=== PATIENT | male | born 1965 | race Two or more races ===

== ENCOUNTER → 2024-09-02 | Outpatient (CLI) | payer BC, SELFPAY ==
[2024-09-02 09:51] LABS: Alanine Aminotransferase 37 U/L (10-49); Albumin, Serum 4.6 gm/dL (3.5-5.0); Albumin/Globulin Ratio 2.2 (1.2-2.2); Alkaline Phosphatase 60 U/L (46-116); Anion Gap 6 (7-16); Aspartate Amino Transferase 31 U/L (0-34); BUN/Creatinine Ratio 15 Ratio (12-20); Bilirubin,Total 0.8 mg/dL (0.3-1.2); Blood Urea Nitrogen 16 mg/dL (9-23); Calcium 9.8 mg/dL (8.3-10.6); Calcium (Corrected) 9.8 mg/dL (8.5-10.1); Cardiac Risk Estimate 4.5 RATIO (4.0-6.7); Chloride 106 mMol/L (98-107); Cholesterol 205 mg/dL (132-200); Creatinine (Component) 1.1 mg/dL (0.6-1.3); Globulin 2.1 gm/dL (2.3-3.5); Glucose 109 mg/dL (74-106); HDL Cholesterol 46 mg/dL (40-60); LDL Cholesterol,Calculated 124 mg/dL (0-130); Osmolality,Calculated 281 (275-295); Potassium 4.6 mMol/L (3.4-5.1); Sodium 140 mMol/L (136-145); Total Protein 6.7 gm/dL (5.7-8.2); Triglycerides 177 mg/dL (30-150); eGFR > 60 See Note
== END | disposition home or self-care (01) ==
LOC: COPL 06:45
PROVIDERS: PCP Nurse Practitioner Family; Referring Provider Nurse Practitioner Family; Visit Provider Nurse Practitioner Family
DX: E78.5 Hyperlipidemia, unspecified (principal)
CPT/HCPCS: 36415; 80053; 80061

== ENCOUNTER 2025-05-26 16:00 | Emergency (ER) | payer BC, SELFPAY ==
[2025-05-26 16:02] VITALS: BMI 27.8
[2025-05-26 16:25] VITALS: BP 164/96; PULSE 90; RESP 18; TEMP 37.1; O2SAT 96
--- NOTE | 2025-05-26 16:39 | PD.EDRME ---
Rapid Medical Screening Exam RME Arrival date/time: 05/26/25 16:00 59-year-old male presents to the Emergency Department today for complaints of right lower extremity pain patient had outpatient ultrasound which shows patient has DVT Chief Complaint: Extremity Injury, Lower Vital signs: Vital Signs Temperature 98.8 F 05/26/25 16:25 Pulse Rate 90 05/26/25 16:25 Respiratory Rate 18 05/26/25 16:25 Blood Pressure 164/96 H 05/26/25 16:25 Pulse Oximetry (%) 96 05/26/25 16:25 Oxygen Delivery Method Room Air 05/26/25 16:25
--- NOTE | 2025-05-26 16:47 | EDNOTE_ITS ---
ED Extremity Problem RME/HPI General Chief complaint: Extremity Injury, Lower Stated complaint: SENT BY PCP FOR POSSIBLE DVT Time Seen by Provider: 05/26/25 16:41 Arrival date/time: 05/26/25 16:00 Limitations: no limitations RME / HPI RME / HPI Narrative: 05/26/25 16:00 59-year-old male presents to the Emergency Department today for complaints of right lower extremity pain patient had outpatient ultrasound which shows patient has DVT DR. SLAUGHTER MAIN ED EVALUATION: 59 year old male presents to the ED for evaluation of right lower extremity pain and swelling beginning 2 days ago and worsening in the last 24 hours. Pain described as aching in sensation located from the right knee down to his ankle. Reportedly consulted with PCP who ordered outpatient ultrasound studies and received call today of positive result. Patient mentioned he has been out of work for 4 months and spends majority of the day sitting. Denies chest pain, shortness of breath, headache, abdominal pain, n/v/d, or urinary symptoms. Related Data Previous Rx's ?Medication ?Instructions ?Recorded apixaban 5 mg (74 tabs) tablets in 5 mg PO BID right l eg DVT #74 tabs 05/26/25 a dose pack hydrocodone 5 mg-acetaminophen 325 1 tab PO Q6H PRN pa in #20 tabs 05/26/25 mg tablet Allergies Allergy/AdvReac Type Severity Reaction Status Date / Time No Known Allergies Allergy Verified 05/26/25 18:03 Review of Systems Review of Systems Systems Reviewed: All systems reviewed, normal except as documented Past Medical History Social History SMOKING STATUS: Never smoker ED Exam General Limitations: Present no limitations General appearance: Present alert and in no apparent distress Head Head exam: Present atraumatic Eye Eye exam: Present normal appearance, PERRL and EOMI ENT ENT exam: Present normal exam, normal oropharynx and mucous membranes moist Neck Neck exam: Present normal inspection, full ROM and trachea midline Chest Chest inspection: Present normal inspection and symmetric chest wall rise Respiratory Respiratory exam: Present normal lung sounds bilaterally Cardiovascular Cardiovascular exam: Present regular rate, normal rhythm and normal heart sounds Abdominal Exam Abdominal exam: Present soft and normal bowel sounds Extremities Exam Extremities exam: Present full ROM and other (Swelling to the rigth calf and behind the knee with 1+ tenderness, no increased warmth ) Back Exam Back exam: Present normal inspection and full ROM Neurological Exam Neurological exam: Present alert, oriented X3 and CN II-XII intact Psychiatric Psychiatric exam: Present normal affect and normal mood Skin Skin exam: Present warm, dry, intact and normal color Course Quality Measures VTE therapy Orders Category Date Time Status CBC Stat Lab 05/26/25 16:41 Completed Comprehensive Metabolic Panel Stat Lab 05/26/25 16:41 Completed Partial Thromboplastin Time Stat Lab 05/26/25 16:41 Completed Prothrombin Time with INR Stat Lab 05/26/25 16:41 Completed Enoxaparin [Lovenox] Med 05/26/25 16:52 Discontinued 90 mg SC X1 ONE HYDROcodone*/APAP 5/325 [[place] 5/325] Med 05/26/25 16:55 Discontinued 1 tab PO X1 ONE Vital Signs Vital signs: Vital Signs Temperature 98.8 F 05/26/25 16:25 Pulse Rate 90 05/26/25 16:25 Respiratory Rate 18 05/26/25 16:25 Blood Pressure 164/96 H 05/26/25 16:25 Pulse Oximetry (%) 96 05/26/25 16:25 Oxygen Delivery Method Room Air 05/26/25 16:25 Pulse ox is 96% on room air which is adequate. Extremity Problem MDM Narrative MDM Narrative:: Anjelica Avalos am scribing for and in the presence of Dr. Slaughter. Patient data External records reviewed:: None (No previous ED visits for review ) Clinical information provided by:: patient Social determinants that could affect healthcare access:: none Patient has the following chronic illnesses:: None reported How is presenting disease/condition affected by chronic disease/condition?: no chronic disease Evaluation data The following diagnostics were reviewed and interpreted by me:: lab results Lab and/or radiology exams considered but not ordered:: None Interpretation Summary: CBC, CMP and PT/PTT all within normal limits Medications / Prescriptions Medications or Prescriptions considered but not ordered:: None Medication administrations:: Medication Administration History Discontinued Medications Hydrocodone Bitart/Acetaminophen (Hydrocodone/Apap 5/325 Tablet) 1 tab PO X1 ON E Stop: 05/26/25 16:56 Last Admin: 05/26/25 18:16 Dose: 1 tab Documented By: OA Enoxaparin Sodium (Enoxaparin Sod Inj 100 Mg/Ml Syringe) 90 mg SC X1 ONE Stop: 05/26/25 16:53 Last Admin: 05/26/25 18:18 Dose: 90 mg Documented By: OA See above Consultations Consultation(s) initiated? (list below): No Diagnosis Most likely diagnosis given after review of the tests above:: DVT Admission Indicated Admission indicated?: not indicated Admission Request Was there a request for admission?: No Disposition Plan Disposition Plan: Discharge Discharge Attestation Discharge Attestation: The patient and all family members were given an opportunity to ask questions and understood the discharge instructions. Discharge instructions specifically effects, indications for sooner follow up or return to the emergency department, and the expected course of current diagnosis. Patient condition: Stable Discharge Plan Plan Patient Disposition: HOME (Self Care) Patient condition on transfer: Stable Prescriptions/Referrals Prescriptions/Med Rec: New apixaban 5 mg (74 tabs) tablets,dose pack 5 mg PO BID MDD 4 Qty: 74 0RF Rx Instructions: Take 2 tabs by mouth twice daily for 7 days and then one tab by mouth twice daily thereafter until your Doctor changes the dosing. hydrocodone-acetaminophen 5-325 mg tablet 1 tab PO Q6H MDD 4 PRN (Reason: pain) Qty: 20 0RF Problem List Clinical Impression: DVT (deep venous thrombosis) Patient/Caregiver Discharge Instructions Other Activity Instructions:: Strict bedrest for 5 days. Only up to go to the bathroom and get something to eat. Keep right leg elevated. Take medicines as prescribed. Follow-up with your doctor as scheduled. Education Materials: DVT Complications Additional Instructions: Strict bedrest for 5 days. Only up to go to the bathroom and get something to eat. Keep right leg elevated. Take medicines as prescribed. Follow-up with your doctor as scheduled. Print Language: Danish Stand Alone Forms: [facility] Info., Patient Portal Info Letter
[2025-05-26 16:54] LABS: Basophils # (Auto) 0.0 Thou/mm3 (0.0-0.2); Basophils % (Auto) 0 % (0-2.5); Eosinophils # (Auto) 0.1 Thou/mm3 (0.0-0.5); Eosinophils % (Auto) 1 % (0-10); Hematocrit 41.0 % (41.0-53.0); Hemoglobin 13.7 g/dL (13.5-16.0); Immature Granulocytes Auto 0.02 Thou/mm3 (0.00-0.00); Lymphocytes # (Auto) 2.3 Thou/mm3 (1.0-4.8); Lymphocytes % (Auto) 32 % (10-50); Mean Corpuscular HGB Conc 33.4 g/dl (31.0-37.0); Mean Corpuscular Hemoglobin 30.2 pg (25.0-35.0); Mean Corpuscular Volume 90 fL (80-100); Monocytes # (Auto) 0.9 Thou/mm3 (0.0-0.8); Monocytes % (Auto) 12 % (0-12); Neutrophils # (Auto) 4.0 Thou/mm3 (1.8-7.7); Neutrophils % (Auto) 55 % (37-80); Nucleated Red Blood Cell # 0.00 Thou/mm3 (0.00-0.00); Nucleated Red Blood Cell % 0 /100 WBC (0); Platelet Count 135 Thou/mm3 (140-440); RDW Standard Deviation 43.3 fL (35.1-43.9); Red Blood Count 4.54 Miln/mm3 (4.50-5.90); White Blood Count 7.3 Thou/mm3 (3.8-10.6)
[2025-05-26 17:09] LABS: INR 1.0 (0.9-1.3); Partial Thromboplastin Time 27.6 Seconds (22.0-36.0); Prothrombin Time 11.0 Seconds (9.0-12.2)
[2025-05-26 17:13] LABS: Alanine Aminotransferase 21 U/L (10-49); Albumin, Serum 4.6 gm/dL (3.4-4.8); Albumin/Globulin Ratio 2.0 (1.2-2.2); Alkaline Phosphatase 75 U/L (46-116); Anion Gap 10 (7-16); Aspartate Amino Transferase 19 U/L (0-34); BUN/Creatinine Ratio 9 Ratio (12-20); Bilirubin,Total 1.1 mg/dL (0.3-1.2); Blood Urea Nitrogen 7 mg/dL (9-23); Calcium 10.3 mg/dL (8.3-10.6); Calcium (Corrected) 10.3 mg/dL (8.5-10.1); Carbon Dioxide 23.9 mMol/L (20.0-31.0); Chloride 107 mMol/L (98-107); Creatinine (Component) 0.8 mg/dL (0.6-1.3); Estimated Creatinine Clearance 113.1 mL/min (>60); Globulin 2.3 gm/dL (2.3-3.5); Glucose 71 mg/dL (74-106); Osmolality,Calculated 277 (275-295); Potassium 4.0 mMol/L (3.4-5.1); Sodium 141 mMol/L (136-145); Total Protein 6.9 gm/dL (5.7-8.2); eGFR > 60 See Note
[2025-05-26] MEDS: HYDROcodone/APAP 5/325 TABLET 1 TAB PO (18:16)
[2025-05-26] MEDS: ENOXAPARIN SOD INJ 100 MG/ML SYRINGE 90 MG SC (18:18)
[2025-05-26 18:22] VITALS: BP 122/78; PULSE 78
== END 2025-05-26 18:23 | disposition home or self-care (01) ==
PROVIDERS: Nurse Practitioner Primary Care; Emergency Provider Family Medicine; PCP Family Medicine
DX: I82.401 Acute embolism and thrombosis of unspecified deep veins of right lower extremity (principal)
CPT/HCPCS: 36415; 80053; 85025; 85610; 85730; 96372; 99283; J1650; A9270

== ENCOUNTER → 2025-05-26 | Outpatient (CLI) | payer BC, SELFPAY ==
--- NOTE | 2025-05-26 | XR_ITS ---
Examination: Duplex scan of the lower extremity, unilateral right Date and time of exam: May 18, 2025 1529 hours INDICATIONS: Right leg swelling and pain beginning 2 days ago Technique: Duplex scan of the extremity veins using B-mode/grayscale imaging and Doppler spectral analysis and color flow Attention is directed to internal echogenicity, compression and augmentation involving these veins, color flow assessment, spectral analysis Findings: Positive for extensive acute occlusive DVT involving right superficial femoral popliteal perineal posterior tibial veins, nonocclusive thrombus in the right common femoral vein IMPRESSION: Extensive acute deep vein thrombus
== END | disposition home or self-care (01) ==
PROVIDERS: PCP Family Medicine; Referring Provider Family Medicine; Visit Provider Family Medicine
DX: I82.491 Acute embolism and thrombosis of other specified deep vein of right lower extremity (principal)
CPT/HCPCS: 93971

== ENCOUNTER → 2025-06-17 | Outpatient (CLI) | payer BC, SELFPAY ==
[2025-06-17 11:30] LABS: Basophils # (Auto) 0.0 Thou/mm3 (0.0-0.2); Basophils % (Auto) 0 % (0-2.5); Eosinophils # (Auto) 0.1 Thou/mm3 (0.0-0.5); Eosinophils % (Auto) 2 % (0-10); Hematocrit 43.5 % (41.0-53.0); Hemoglobin 14.3 g/dL (13.5-16.0); Immature Granulocytes Auto 0.02 Thou/mm3 (0.00-0.00); Lymphocytes # (Auto) 1.9 Thou/mm3 (1.0-4.8); Lymphocytes % (Auto) 32 % (10-50); Mean Corpuscular HGB Conc 32.9 g/dl (31.0-37.0); Mean Corpuscular Hemoglobin 30.0 pg (25.0-35.0); Mean Corpuscular Volume 91 fL (80-100); Monocytes # (Auto) 0.5 Thou/mm3 (0.0-0.8); Monocytes % (Auto) 8 % (0-12); Neutrophils # (Auto) 3.3 Thou/mm3 (1.8-7.7); Neutrophils % (Auto) 57 % (37-80); Nucleated Red Blood Cell # 0.00 Thou/mm3 (0.00-0.00); Nucleated Red Blood Cell % 0 /100 WBC (0); Platelet Count 144 Thou/mm3 (140-440); RDW Standard Deviation 45.3 fL (35.1-43.9); Red Blood Count 4.77 Miln/mm3 (4.50-5.90); White Blood Count 5.8 Thou/mm3 (3.8-10.6)
[2025-06-17 12:01] LABS: Alanine Aminotransferase 36 U/L (10-49); Albumin, Serum 4.5 gm/dL (3.4-4.8); Albumin/Globulin Ratio 2.0 (1.2-2.2); Alkaline Phosphatase 65 U/L (46-116); Anion Gap 9 (7-16); Aspartate Amino Transferase 27 U/L (0-34); BUN/Creatinine Ratio 13 Ratio (12-20); Bilirubin,Total 0.9 mg/dL (0.3-1.2); Blood Urea Nitrogen 12 mg/dL (9-23); Calcium 10.0 mg/dL (8.3-10.6); Calcium (Corrected) 10.0 mg/dL (8.5-10.1); Carbon Dioxide 27.1 mMol/L (20.0-31.0); Chloride 106 mMol/L (98-107); Creatinine (Component) 0.9 mg/dL (0.6-1.3); Globulin 2.2 gm/dL (2.3-3.5); Glucose 96 mg/dL (74-106); Osmolality,Calculated 282 (275-295); Potassium 4.5 mMol/L (3.4-5.1); Sodium 142 mMol/L (136-145); Total Protein 6.7 gm/dL (5.7-8.2); eGFR > 60 See Note
[2025-06-22 06:36] LABS: ANA Screen, IFA NEGATIVE (NEGATIVE); DNA (ds) Antibody* <1 IU/mL
[2025-06-23 06:57] LABS: Antithrombin III, Activity 103 % normal (80-135); Antithrombin III, Antigen 88 % normal (80-120); Protein C Activity* 148 % normal (70-180); Protein C Antigen, Total* 88 % normal (70-140); Protein S Activity* 105 % normal (70-150); Protein S Antigen, Total* 102 % normal (70-140)
== END | disposition home or self-care (01) ==
LOC: COPL 10:03
PROVIDERS: PCP Family Medicine; Referring Provider Specialist; Visit Provider Specialist
DX: I82.409 Acute embolism and thrombosis of unspecified deep veins of unspecified lower extremity (principal)
CPT/HCPCS: 36415; 80053; 85025; 85300; 85301; 85302; 85303; 85305; 85306; 86038; 86225

== ENCOUNTER 2025-08-08 09:22 | Emergency (ER) | payer BC, SELFPAY ==
--- NOTE | 2025-08-08 09:42 | XR_ITS ---
Examination: CT abdomen and pelvis without contrast. Coronal 3-D reconstructions. Sagittal 2-D reconstructions. Date and time of exam: August 08, 2025, 1041 hours INDICATION: Right-sided flank pain today CTDI: vol (mGy): 8.46 DLP: (mGycm): 502 Technique: Axial images of the abdomen have been obtained, 3 mm slice thickness Intravenous contrast material has not been administered. Low dose protocols were performed. One or more of the following dose reduction techniques were used; automated exposure control, adjustment of the mA and/or KV according to patient size, use of iterative reconstruction technique. Findings: 3 mm pulmonary nodule right lower lobe image 37 Fatty infiltration throughout the liver no focal liver lytic or splenic lesions No gallstones No pancreatic or adrenal mass No renal or ureteral calculi, no hydronephrosis Colonic diverticulosis Small fat-containing inguinal hernia Normal appendix Calcified lymph nodes in the lower mesentery No bowel obstruction No diverticulitis Contracted urinary bladder with minimal urinary bladder wall thickening No significant prostatomegaly, prostate calcifications IMPRESSION: No renal or ureteral calculi, no hydronephrosis Normal appendix Mild cystitis pattern
[2025-08-08 09:43] VITALS: BP 140/97; PULSE 68; RESP 18; TEMP 36.9; O2SAT 98
[2025-08-08] MEDS: KETOROLAC INJ 60 MG/2 ML VIAL 30 MG IM (09:46)
--- NOTE | 2025-08-08 09:48 | EDNOTE_ITS ---
<Statement entered by Elda Hamlin MD - 08/08/25 17:57> As co-signing physician, I was present and available for consult prn. I concur with the plan and care as documented by the midlevel provider. ED Abdominal Pain RME/HPI General Chief Complaint: Abdominal Pain Stated complaint: Flank pain Time seen by provider: 08/08/25 10:51 Arrival date/time: 08/08/25 09:22 59-year-old male with no known medical history presents to the emergency room with a chief complaint of right-sided flank pain x 2 days Source: patient Mode of arrival: ambulatory Limitations: no limitations Related Data Previous Rx's ?Medication ?Instructions ?Recorded apixaban 5 mg (74 tabs) tablets in 5 mg PO BID right l eg DVT #74 tabs 05/26/25 a dose pack hydrocodone 5 mg-acetaminophen 325 1 tab PO Q6H PRN pa in #20 tabs 05/26/25 mg tablet sulfamethoxazole 800 1 tab PO BID #14 tabs mg-trimethoprim 160 mg tablet (Bactrim DS) Allergies Allergy/AdvReac Type Severity Reaction Status Date / Time No Known Allergies Allergy Verified 05/26/25 18:03 Past Medical History Social History SMOKING STATUS: Never smoker ED Exam General Limitations: Present no limitations General appearance: Present alert and in no apparent distress Head Head exam: Present atraumatic Eye Eye exam: Present normal appearance, PERRL and EOMI ENT ENT exam: Present normal exam, normal oropharynx and mucous membranes moist Neck Neck exam: Present normal inspection, full ROM and trachea midline Chest Chest inspection: Present normal inspection and symmetric chest wall rise Respiratory Respiratory exam: Present normal lung sounds bilaterally Cardiovascular Cardiovascular exam: Present regular rate, normal rhythm and normal heart sounds Abdominal Exam Abdominal exam: Present soft and normal bowel sounds Extremities Exam Extremities exam: Present normal inspection and full ROM Back Exam Back exam: Present normal inspection, full ROM and CVA tenderness (R) Neurological Exam Neurological exam: Present alert, oriented X3 and CN II-XII intact Psychiatric Psychiatric exam: Present normal affect and normal mood Skin Skin exam: Present warm, dry, intact and normal color Course Quality Measures none Orders Category Date Time Status CT abdomen pelvis wo con Stat Exams 08/08/25 09:42 Completed CBC Stat Lab 08/08/25 09:52 Completed CMP [Comprehensive Metabolic Panel] Stat Lab 08/08/25 09:52 Completed Lipase Stat Lab 08/08/25 09:52 Completed UA [Urinalysis] Stat Lab 08/08/25 09:51 Completed Urine Culture Stat Lab 08/08/25 09:51 Received Ketorolac Inj [Toradol Inj] Med 08/08/25 09:42 Discontinued 30 mg IM X1 ONE Vital Signs Vital signs: Vital Signs Temperature 98.5 F 08/08/25 09:43 Pulse Rate 68 08/08/25 09:43 Respiratory Rate 18 08/08/25 09:43 Blood Pressure 140/97 H 08/08/25 09:43 Pulse Oximetry (%) 98 08/08/25 09:43 Oxygen Delivery Method Room Air 08/08/25 09:43 Abdominal Pain MDM MDM Narrative MDM Narrative:: 59-year-old male with no known medical history presents to the emergency room with a chief complaint of right-sided flank pain x 2 days Patient is hemodynamically stable and in no apparent distress Physical examination shows right CVA tenderness with palpation. Patient states has been having flank pain for the last 2 days. Patient denies any nausea or vomiting. Patient denies any fever Physical examination shows the rest of his abdomen is soft and nontender. CT of the abdomen and pelvis was negative for any acute findings. There is normal appendix there is no renal calculi no ureteral calculi and no hydronephrosis. The CT did show a mild cystitis pattern. Antibiotics are sent to the patient's pharmacy Patient was discharged and educated to follow-up with primary care provider in the next 24 to 48 hours and return to the emergency room for any evidence of worsening signs or symptoms Patient data External records reviewed:: [facility] previous records Clinical information provided by:: patient Social determinants that could affect healthcare access:: none Patient has the following chronic illnesses:: No chronic illness How is presenting disease/condition affected by chronic disease/condition?: no chronic disease Evaluation data The following diagnostics were reviewed and interpreted by me:: lab results and radiology exam(s) Lab and/or radiology exams considered but not ordered:: Labs and radiology exams considered and ordered Interpretation Summary: CT abdomen and pelvis-Findings: 3 mm pulmonary nodule right lower lobe image 37 Fatty infiltration throughout the liver no focal liver lytic or splenic lesions No gallstones No pancreatic or adrenal mass No renal or ureteral calculi, no hydronephrosis Colonic diverticulosis Small fat-containing inguinal hernia Normal appendix Calcified lymph nodes in the lower mesentery No bowel obstruction No diverticulitis Contracted urinary bladder with minimal urinary bladder wall thickening No significant prostatomegaly, prostate calcifications IMPRESSION: No renal or ureteral calculi, no hydronephrosis Normal appendix Mild cystitis pattern Medications / Prescriptions Medications or Prescriptions considered but not ordered:: Medication given Medication administrations:: Medication Administration History Discontinued Medications Ketorolac Tromethamine (Ketorolac Inj 60 Mg/2 Ml Vial) 30 mg IM X1 ONE Stop: 08/08/25 09:43 Last Admin: 08/08/25 09:46 Dose: 30 mg Documented By: EDIE Medication given Consultations Consultation(s) initiated? (list below): No Diagnosis Differential diagnosis abdominal pain: abdominal pain, calculus of kidney, constipation, gastroenteritis and other (Cystitis) Most likely diagnosis given after review of the tests above:: Cystitis Admission Indicated Admission indicated?: not indicated Admission Request Was there a request for admission?: No Disposition Plan Disposition Plan: Discharge Discharge Attestation Discharge Attestation: The patient and all family members were given an opportunity to ask questions and understood the discharge instructions. Discharge instructions specifically effects, indications for sooner follow up or return to the emergency department, and the expected course of current diagnosis. Patient condition: Stable Discharge Plan Plan Patient Disposition: HOME (Self Care) Prescriptions/Referrals Prescriptions/Med Rec: New sulfamethoxazole-trimethoprim [Bactrim DS] 800-160 mg tablet 1 tab PO BID Qty: 14 0RF No Action apixaban 5 mg (74 tabs) tablets,dose pack 5 mg PO BID MDD 4 Qty: 74 0RF Rx Instructions: Take 2 tabs by mouth twice daily for 7 days and then one tab by mouth twice daily thereafter until your Doctor changes the dosing. hydrocodone-acetaminophen 5-325 mg tablet 1 tab PO Q6H MDD 4 PRN (Reason: pain) Qty: 20 0RF Referrals: Huang Barrett MD [Primary Care Provider, Family Practice] - In 1 week Problem List Clinical Impression: Cystitis Patient/Caregiver Discharge Instructions Education Materials: ED Bladder Infection, Male (Adult) Additional Instructions: Please follow-up with your primary care provider in the next 24 to 48 hours Antibiotics are sent to your pharmacy please pick them up and take them as indicated Your CT of your abdomen and pelvis was negative for any acute findings For any evidence of worsening signs or symptoms return to the emergency room immediately Print Language: Italian Stand Alone Forms: [facility] Info., Work/School Release, Patient Portal Info Letter
[2025-08-08 10:06] LABS: Collection Type, Urine Clean Catch; Squamous Epithelial Cell,Urine 0 /hpf (0-5)
[2025-08-08 10:21] LABS: Basophils # (Auto) 0.0 Thou/mm3 (0.0-0.2); Basophils % (Auto) 0 % (0-2.5); Eosinophils # (Auto) 0.1 Thou/mm3 (0.0-0.5); Eosinophils % (Auto) 1 % (0-10); Hematocrit 42.8 % (41.0-53.0); Hemoglobin 14.4 g/dL (13.5-16.0); Immature Granulocytes Auto 0.01 Thou/mm3 (0.00-0.00); Lymphocytes # (Auto) 1.6 Thou/mm3 (1.0-4.8); Lymphocytes % (Auto) 31 % (10-50); Mean Corpuscular HGB Conc 33.6 g/dl (31.0-37.0); Mean Corpuscular Hemoglobin 29.7 pg (25.0-35.0); Mean Corpuscular Volume 88 fL (80-100); Monocytes # (Auto) 0.4 Thou/mm3 (0.0-0.8); Monocytes % (Auto) 7 % (0-12); Neutrophils # (Auto) 3.1 Thou/mm3 (1.8-7.7); Neutrophils % (Auto) 60 % (37-80); Nucleated Red Blood Cell # 0.00 Thou/mm3 (0.00-0.00); Nucleated Red Blood Cell % 0 /100 WBC (0); Platelet Count 143 Thou/mm3 (140-440); RDW Standard Deviation 42.6 fL (35.1-43.9); Red Blood Count 4.85 Miln/mm3 (4.50-5.90); White Blood Count 5.2 Thou/mm3 (3.8-10.6)
[2025-08-08 10:33] LABS: Bilirubin,Urine Negative (Negative); Blood,Urine Negative (Negative); Clarity,Urine Clear (Clear/Hazy); Color,Urine Yellow (Lt Yel-Yel); Glucose, Urine Negative (Negative); Ketones,Urine Negative (Negative); Leukocyte Esterase,Urine Negative (Negative); Nitrite,Urine Negative (Negative); PH,Urine 6.0 (5.0-7.0); Protein,Urine Trace (Neg - Trace); RBC,Urine 3 /hpf (0-3); Specific Gravity,Urine 1.025 (1.001-1.035); Urobilinogen,Urine Negative mg/dL (0.0-1.0); WBC,Urine < 1 /hpf (0-5)
[2025-08-08 10:48] LABS: Alanine Aminotransferase 34 U/L (10-49); Albumin, Serum 5.0 gm/dL (3.4-4.8); Albumin/Globulin Ratio 2.5 (1.2-2.2); Alkaline Phosphatase 65 U/L (46-116); Anion Gap 8 (7-16); Aspartate Amino Transferase 25 U/L (0-34); BUN/Creatinine Ratio 14 Ratio (12-20); Bilirubin,Total 0.9 mg/dL (0.3-1.2); Blood Urea Nitrogen 11 mg/dL (9-23); Calcium 9.7 mg/dL (8.3-10.6); Calcium (Corrected) 9.7 mg/dL (8.5-10.1); Carbon Dioxide 28.6 mMol/L (20.0-31.0); Chloride 106 mMol/L (98-107); Creatinine (Component) 0.8 mg/dL (0.6-1.3); Globulin 2.0 gm/dL (2.3-3.5); Glucose 104 mg/dL (74-106); Lipase 31 U/L (12-53); Osmolality,Calculated 284 (275-295); Potassium 4.3 mMol/L (3.4-5.1); Sodium 143 mMol/L (136-145); Total Protein 7.0 gm/dL (5.7-8.2); eGFR > 60 See Note
== END 2025-08-08 12:46 | disposition home or self-care (01) ==
PROVIDERS: Nurse Practitioner Family; Emergency Provider Emergency Medicine; PCP Family Medicine
DX: N30.90 Cystitis, unspecified without hematuria (principal)
CPT/HCPCS: 36415; 74176; 80053; 81001; 83690; 85025; 87086; 96372; 99283; J1885